=== PATIENT | male | born 1995 | race Two or more races ===

== ENCOUNTER 2023-09-28 14:36 | Emergency (ER) | payer OTHER ==
[~2023-09-28] VITALS: Ht 185.4 cm; Wt 61.2 kg
[2023-09-28] MEDS ORDERED: NEURONTIN400 MG (14:50)
[2023-09-28] MEDS ORDERED: OXYCODONE HCL5 MG (14:50)
[2023-09-28] MEDS ORDERED: VITAMIN D350 MC3 (14:51)
[2023-09-28] MEDS ORDERED: STIMULANT LAXA1 EACH (14:52)
[2023-09-28] MEDS ORDERED: HYDROXYZINE HCL50 MG (14:52)
[2023-09-28] MEDS ORDERED: METHOCARBAMOL750 MG (14:52)
[2023-09-28] MEDS ORDERED: VENTOLIN HFA18 GM (14:53)
[2023-09-28] MEDS ORDERED: AMITRIPTYLINE H25 MG (14:53)
--- OUTSIDE RECORDS SUMMARY | 2023-09-28 16:11 | XMS ---
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 E.D. VISIT COUNT (12 MO.) 1 [place] [id number] [facility] [place] TOTAL 3 NOTE: Visits indicate total known visits. ED/UCC VISIT TRACKING (12 MO.) 09/28/2023 14:38 [facility] [place] TYPE: Emergency COMPLAINT: - LT LEG PAIN 08/06/2023 13:43 [facility] TYPE: Emergency DIAGNOSES: - Acute posthemorrhagic anemia - Displaced comminuted fracture of shaft of left tibia, initial encounter for open fracture type IIIA, IIIB, or IIIC - Other disorder of circulatory system - Puncture wound without foreign body, left lower leg, initial encounter - Puncture wound without foreign body, left lower leg, initial encounter - Puncture wound without foreign body, right lower leg, initial encounter - Unspecified injury of popliteal artery, left leg, initial encounter - bi lateral gushot wound - Trauma 08/06/2023 11:12 [facility] [place] TYPE: Emergency INPATIENT VISIT TRACKING (12 MO.) 08/16/2023 13:37 [facility] [place] TYPE: Rehab DIAGNOSES: - Acquired absence of left leg above knee - Major depressive disorder, recurrent, unspecified - Phantom limb syndrome with pain - Puncture wound without foreign body, unspecified lower leg, initial encounter - Unspecified fracture of shaft of left tibia, initial encounter for open fracture type IIIA, IIIB, or IIIC - Unspecified fracture of shaft of right tibia, initial encounter for open fracture type IIIA, IIIB, or IIIC 08/06/2023 13:43 [facility] [place] TYPE: Orthopedic DIAGNOSES: - Acute posthemorrhagic anemia - Displaced comminuted fracture of shaft of left tibia, initial encounter for open fracture type IIIA, IIIB, or IIIC - Other disorder of circulatory system - Puncture wound without foreign body, left lower leg, initial encounter - Puncture wound without foreign body, left lower leg, initial encounter - Puncture wound without foreign body, right lower leg, initial encounter - Unspecified fracture of shaft of left tibia, initial encounter for open fracture type IIIA, IIIB, or IIIC - Unspecified fracture of shaft of right tibia, initial encounter for open fracture type IIIA, IIIB, or IIIC - Unspecified injury of popliteal artery, left leg, initial encounter [email or web address]
[2023-09-28] MEDS ORDERED: METHOCARBAMOL750 MG PO (16:51)
[2023-09-28] MEDS ORDERED: DIAZEPAM5 MG PO (18:35)
[2023-09-28 18:44] VITALS: BP 117/84
[2023-09-29] MEDS ORDERED: AMOX TR-K CLV1 EAC1 PO (21:30)
== END 2023-09-28 18:45 | disposition home or self-care (01) ==
LOC: ED 14:36
DX: M79.605 Pain in left leg (principal); Z79.899 Other long term (current) drug therapy; Z89.612 Acquired absence of left leg above knee
CPT/HCPCS: 96372; 99283; A9270; J1170

== ENCOUNTER 2023-09-29 17:49 | Emergency (ER) | payer OTHER ==
[~2023-09-29] VITALS: Ht 185.4 cm; Wt 61.2 kg
[~2023-09-29 17:49] MED LIST: AMITRIPTYLINE H25 MG; DIAZEPAM5 MG PO; HYDROXYZINE HCL50 MG; METHOCARBAMOL750 MG; METHOCARBAMOL750 MG PO; NEURONTIN400 MG; OXYCODONE HCL5 MG; STIMULANT LAXA1 EACH; VENTOLIN HFA18 GM; VITAMIN D350 MC3
--- OUTSIDE RECORDS SUMMARY | 2023-09-29 17:56 | XMS ---
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 E.Kerry VISIT COUNT (12 MO.) 2 [facility]ON Rashid 1 [place] [address] [place] TOTAL 4 NOTE: Visits indicate total known visits. ED/UCC VISIT TRACKING (12 MO.) 09/29/2023 17:49 [facility] [place] TYPE: Emergency COMPLAINT: - LT LEG PAIN 09/28/2023 14:38 [facility] [place] TYPE: Emergency COMPLAINT: - LT LEG PAIN 08/06/2023 13:43 [facility] [place] TYPE: Emergency DIAGNOSES: - Acute posthemorrhagic [...] lateral gushot wound - Tra[facility]23 [facility] INPATIENT VISIT TRACKING (12 MO.) 08/16/2023 13:37 [facility] [place] TYPE: Rehab DIAGNOSES: [...] type IIIA, IIIB, or IIIC 08/06/2023 13:43 [facility] [employer] [place] TYPE: Orthopedic DIAGNOSES: - Acute [...] of popliteal artery, left leg, initial encounter [email or web address]
[2023-09-29 19:05] LABS: EOSINOPHILS 9.8 % (0-6); HEMATOCRIT 38.1 % (35.0-50.0); HEMOGLOBIN 12.4 g/dL (12.0-18.0); MCH 27.6 (27-36); MCHC 32.6 g/dl (30-36); MCV 84.7 fl (81-99); MONOCYTES 11.3 % (0-12); NEUTROPHILS 40.9 % (39-80); PLATELET COUNT 205 K/uL (140-440); RDW 15.3 (10.5-15.0)
[2023-09-29 19:23] LABS: ALBUMIN 3.5 g/dL (3.4-5.0); ALBUMIN/GLOBULIN RATIO 1.09 (1.1-2.4); ANION GAP 12.3 (7-21); BILIRUBIN, TOTAL 0.2 ng/dL (0.2-1.0); BUN/CREATININE RATIO 22.35 (6.0-28.6); CALCIUM 8.9 mg/dL (8.5-10.1); CREATININE, SERUM 0.85 mg/dL (0.70-1.30); POTASSIUM 4.3 mmol/L (3.5-5.1); PROTEIN, TOTAL 6.7 g/dL (6.4-8.2)
[2023-09-29] MEDS ORDERED: AMOX TR-K CLV1 EAC1 PO (21:30)
[2023-09-29 21:43] VITALS: BP 119/87
[2023-09-30] MEDS ORDERED: DILAUDID2 MG PO (19:08)
== END 2023-09-29 21:40 | disposition home or self-care (01) ==
LOC: ED 17:49
PROVIDERS: Emergency Medicine
DX: T87.89 Other complications of amputation stump (principal); L76.34 Postprocedural seroma of skin and subcutaneous tissue following other procedure; I10 Essential (primary) hypertension; Y83.5 Amputation of limb(s) as the cause of abnormal reaction of the patient, or of later complication, without mention of misadventure at the time of the procedure
CPT/HCPCS: 36415; 73701; 80053; 85025; 86140; 99284-25; J3490; Q9967

== ENCOUNTER 2023-09-30 14:05 | Emergency (ER) | payer OTHER ==
[~2023-09-30] VITALS: Ht 185.4 cm; Wt 61.2 kg
--- OUTSIDE RECORDS SUMMARY | ~2023-09-30 | XMS | Continuity of Care Document ---
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 | | | | | 100 | | System - | | | | | LEUKOCYTES | | [place] | | | | | IN BLOOD BY | | | | | | | AUTOMATED | | | | | | | COUNT | | | | | | + + + +--------+ + + + + | Result panel 5 | + + + + + + + + + | ALCOHOL | 2023-08-06 | [facility] | < | g/dl | (missing) | | (G/DL) IN | 13:54 | Health | | | | | SER/PLAS | | System - | | | | | | | [place] | | | | + + + + + + + | WBC | 2023-08-06 | [facility] | 1 | /hpf | (missing) | | (LEUKOCYTE) | 13:54 | Health | | | | | (#/HPF) IN | | System - | | | | | URINE | | [place] | | | | | SEDIMENT | | | | | | + + + + + + + | RBC (#/HPF) | 2023-08-06 | [facility] | 1 | /hpf | (missing) | | IN URINE | 13:54 | Health | | | | | SEDIMENT | | System - | | | | | | | [place] | | | | + + + + + + + | SPECIFIC | 2023-08-06 | [facility] | 1.009 | (missing) | (missing) | | GRAVITY OF | 13:54 | Health | | | | | URINE BY | | System - | | | | | AUTOMATED | | [place] | | | | | TEST STRIP | | | | | | + + + + + + + | PH OF URINE | 2023-08-06 | [facility] | 5.5 | (missing) | (missing) | | | 13:54 | Health | | | | | | | System - | | | | | | | [place] | | | | + + + + + + + | CLARITY OF | 2023-08-06 | [facility] | Clear | (missing) | (missing) | | URINE | 13:54 | Health | | | | | | | System - | | | | | | | [place] | | | | + + + + + + + | COLOR OF | 2023-08-06 | [facility] | Colorless | (missing) | Urine | | URINE | 13:54 | Health | | | culture not | | | | System - | | | indicated. | | | | [place] | | | | + + + + + + + | | 2023-08-06 | [facility] | Negative | (missing) | (missing) | | BARBITURATES | 13:54 | Health | | | | | PRESENCE IN | | System - | | | | | URINE BY | | [place] | | | | | SCREEN | | | | | | | METHOD | | | | | | + + + + + + + | BILIRUBIN, | 2023-08-06 | [facility] | Negative | (missing) | (missing) | | TOTAL | 13:54 | Health | | | | | PRESENCE IN | | System - | | | | | URINE | | [place] | | | | + + + + + + + | COCAINE | 2023-08-06 | [facility] | Negative | (missing) | (missing) | | (PRESENCE) | 13:54 | Health | | | | | IN URINE BY | | System - | | | | | SCREEN | | [place] | | | | | METHOD | | | | | | + + + + + + + | GLUCOSE IN | 2023-08-06 | [facility] | Negative | (missing) | (missing) | | URINE | 13:54 | Health | | | | | | | System - | | | | | | | [place] | | | | + + + + + + + | HEMOGLOBIN | 2023-08-06 | [facility] | Negative | (missing) | (missing) | | PRESENCE IN | 13:54 | Health | | | | | URINE | | System - | | | | | | | [place] | | | | + + + + + + + | KETONES IN | 2023-08-06 | [facility] | Negative | (missing) | (missing) | | URINE | 13:54 | Health | | | | | | | System - | | | | | | | [place] | | | | + + + + + + + | LEUKOCYTE | 2023-08-06 | [facility] | Negative | (missing) | (missing) | | ESTERASE | 13:54 | Health | | | | | PRESENCE IN | | System - | | | | | URINE BY | | [place] | | | | | TEST STRIP | | | | | | + + + + + + + | METHADONE | 2023-08-06 | [facility] | Negative | (missing) | (missing) | | (PRESENCE) | 13:54 | Health | | | | | IN URINE BY | | System - | | | | | SCREEN | | [place] | | | | | METHOD | | | | | | + + + + + + + | | 2023-08-06 | [facility] | Negative | (missing) | (missing) | | METHAMPHETAM | 13:54 | Health | | | | | INE | | System - | | | | | (PRESENCE) | | [place] | | | | | IN URINE BY | | | | | | | SCREEN | | | | | | | METHOD | | | | | | + + + + + + + | NITRITE | 2023-08-06 | [facility] | Negative | (missing) | (missing) | | PRESENCE IN | 13:54 | Health | | | | | URINE | | System - | | | | | | | [place] | | | | + + + + + + + | OXYCODONE | 2023-08-06 | [facility] | Negative | (missing) | (missing) | | (PRESENCE) | 13:54 | Health | | | | | IN URINE BY | | System - | | | | | SCREEN | | [place] | | | | | METHOD | | | | | | + + + + + + + | | 2023-08-06 | [facility] | Negative | (missing) | (missing) | | PHENCYCLIDIN | 13:54 | Health | | | | | E (PRESENCE) | | System - | | | | | IN URINE BY | | [place] | | | | | SCREEN | | | | | | | METHOD | | | | | | + + + + + + + | PROTEIN IN | 2023-08-06 | [facility] | Negative | (missing) | (missing) | | URINE BY | 13:54 | Health | | | | | TEST STRIP | | System - | | | | | | | [place] | | | | + + + + + + + | THC | 2023-08-06 | [facility] | Negative | (missing) | (missing) | | (CANNABINOID | 13:54 | Health | | | | | ) IN URINE | | System - | | | | | BY SCREEN | | [place] | | | | | METHOD | | | | | | + + + + + + + | TRICYCLIC | 2023-08-06 | [facility] | Negative | (missing) | (missing) | | ANTIDEPRESSA | 13:54 | Health | | | | | NTS | | System - | | | | | (PRESENCE) | | [place] | | | | | IN URINE | | | | | | + + + + + + + | AMPHETAMINE | 2023-08-06 | [facility] | Negative | (missing) | [facility] URINE | | (PRESENCE) | 13:54 | Health | | | DRUG SCREEN | | IN URINE BY | | System - | | | CUT OFF | | SCREEN | | [place] | | | VALUES: AMP | | METHOD | | | | | Amphetamines | | | | | | | 500 ng/mL | | | | | | | MAMP | | | | | | | Methamphetam | | | | | | | ine 500 | | | | | | | ng/mL BAR | | | | | | | Barbiturates | | | | | | | 200 ng/mL | | | | | | | BZO | | | | | | | Benzodiazepi | | | | | | | karely 150 | | | | | | | ng/mL ED | | | | | | | Cocaine 150 | | | | | | | ng/mL MTD | | | | | | | Methadone | | | | | | | 200 ng/mL | | | | | | | OPI Opiates | | | | | | | 100 ng/mL | | | | | | | OXY | | | | | | | Oxycodone | | | | | | | 100 ng/mL | | | | | | | PCP | | | | | | | Phencyclidin | | | | | | | e 25 ng/mL | | | | | | | THC THC 50 | | | | | | | ng/mL TCA | | | | | | | Tricyclic | | | | | | | Antidepressa | | | | | | | nts 300 | | | | | | | ng/mL | + + + + + + + | BACTERIA | 2023-08-06 | [facility] | No bacteria | /hpf | (missing) | | (#/HPF) IN | 13:54 | Health | seen | | | | URINE | | System - | | | | | | | [place] | | | | + + + + + + + | | 2023-08-06 | [facility] | Normal | mg/dl | (missing) | | UROBILINOGEN | 13:54 | Health | | | | | (MG/DL) IN | | System - | | | | | URINE BY | | [place] | | | | | TEST STRIP | | | | | | + + + + + + + | | 2023-08-06 | [facility] | Presumptive | (missing) | (missing) | | BENZODIAZEPI | 13:54 | Health | Positive | | | | KARELY | | System - | | | | | (PRESENCE) | | [place] | | | | | IN URINE BY | | | | | | | SCREEN | | | | | | | METHOD | | | | | | + + + + + + + | OPIATES | 2023-08-06 | [facility] | Presumptive | (missing) | (missing) | | (PRESENCE) | 13:54 | Health | Positive | | | | IN URINE BY | | System - | | | | | SCREEN | | [place] | | | | | METHOD | | | | | | + + + + + + + | MUCUS | 2023-08-06 | [facility] | Trace | (missing) | (missing) | | (#/HPF) IN | 13:54 | Health | | | | | URINE | | System - | | | | | SEDIMENT | | [place] | | | | + + + + + + + + + | Result panel 6 | + + + + + +-------+-------+ + | CREATINE | 2023-08-06 | [facility] | 488 | u/l | (missing) | | KINASE (CK), | 13:55 | Health | | | | | TOTAL (U/L) | | System - | | | | | IN SER/PLAS | | [place] | | | | | | | | | | | + + + +-------+-------+ + + + | Result panel 7 | + + + + + + + + + | POCT FIO2 | 2023-08-06 | [facility] | (missing) | (missing) | (missing) | | | 14:00 | Health | | | | | | | System - | | | | | | | [place] | | | | + + + + + + + | POCT LPM | 2023-08-06 | [facility] | (missing) | (missing) | (missing) | | FLOW | 14:00 | Health | | | | | | | System - | | | | | | | [place] | | | | + + + + + + + | POCT PCO2 | 2023-08-06 | [facility] | (missing) | (missing) | (missing) | | (CALC) TEMP | 14:00 | Health | | | | | CORRECTED | | System - | | | | | BLOOD VENOUS | | [place] | | | | | | | | | | | + + + + + + + | POCT PH, | 2023-08-06 | [facility] | (missing) | (missing) | (missing) | | (CALC) TEMP | 14:00 | Health | | | | | CORRECTED | | System - | | | | | BLOOD VENOUS | | [place] | | | | | | | | | | | + + + + + + + | POCT PO2 | 2023-08-06 | [facility] | (missing) | (missing) | (missing) | | (CALC) TEMP | 14:00 | Health | | | | | CORRECTED | | System - | | | | | BLOOD VENOUS | | [place] | | | | | | | | | | | + + + + + + + | POCT | 2023-08-06 | [facility] | (missing) | (missing) | (missing) | | TEMPERATURE | 14:00 | Health | | | | | | | System - | | | | | | | [place] | | | | + + + + + + + | POCT BASE | 2023-08-06 | [facility] | -4.0 | mmol/l | (missing) | | EXCESS CALC | 14:00 | Health | | | | | BLOOD VENOUS | | System - | | | | | | | [place] | | | | + + + + + + + | POCT | 2023-08-06 | [facility] | 0.7 | mg/dl | (missing) | | CREATININE | 14:00 | Health | | | | | BLOOD | | System - | | | | | | | [place] | | | | + + + + + + + | POCT HCO3 | 2023-08-06 | [facility] | 21 | mmol/l | (missing) | | CALC BLOOD | 14:00 | Health | | | | | VENOUS | | System - | | | | | | | [place] | | | | + + + + + + + | POCT TCO2 | 2023-08-06 | [facility] | 22 | mmol/l | (missing) | | CALC BLOOD | 14:00 | Health | | | | | VENOUS | | System - | | | | | | | [place] | | | | + + + + + + + | POCT PCO2 | 2023-08-06 | [facility] | 33 | mm hg | (missing) | | (37C) BLOOD | 14:00 | Health | | | | | VENOUS | | System - | | | | | | | [place] | | | | + + + + + + + | POCT | 2023-08-06 | [facility] | 34.0 | % | (missing) | | HEMATOCRIT | 14:00 | Health | | | | | | | System - | | | | | | | [place] | | | | + + + + + + + | POCT PO2 | 2023-08-06 | [facility] | 53 | mm hg | (missing) | | (37C) BLOOD | 14:00 | Health | | | | | VENOUS | | System - | | | | | | | [place] | | | | + + + + + + + | POCT PH | 2023-08-06 | [facility] | 7.41 | ph | (missing) | | (37C) BLOOD | 14:00 | Health | | | | | VENOUS | | System - | | | | | | | [place] | | | | + + + + + + + | POCT O2 | 2023-08-06 | [facility] | 87 | % | (missing) | | SATURATION | 14:00 | Health | | | | | CALC BLOOD | | System - | | | | | VENOUS | | [place] | | | | + + + + + + + + + | Result panel 8 | + + + + + +--------+ + + | INR | 2023-08-06 | [facility] | 1.3 | (missing) | (missing) | | | 14:03 | Health | | | | | | | System - | | | | | | | [place] | | | | + + + +--------+ + + | D-DIMER, | 2023-08-06 | [facility] | 1.79 | mcg/ml feu | The | | QUANTITATIVE | 14:03 | Health | | | 'reference | | (MCG/ML) | | System - | | | range' for | | STAGO | | [place] | | | the D-dimer | | | | | | | assay is an | | | | | | | interpretati | | | | | | | ve range for | | | | | | | exclusion | | | | | | | of DVT/PE in | | | | | | | low and | | | | | | | moderate | | | | | | | pre-test | | | | | | | probability | | | | | | | patients; | | | | | | | this range | | | | | | | has been | | | | | | | aged-adjuste | | | | | | | d for | | | | | | | patients | | | | | | | older than | | | | | | | 50. ?If the | | | | | | | D-dimer has | | | | | | | been ordered | | | | | | | for other | | | | | | | purposes the | | | | | | | true | | | | | | | reference | | | | | | | range for | | | | | | | outpatient | | | | | | | adults is | | | | | | | 0.12-0.53 | | | | | | | mcg/mL FEU. | + + + +--------+ + + | PT | 2023-08-06 | [facility] | 15.9 | seconds | INR is valid | | (PROTHROMBIN | 14:03 | Health | | | for | | TIME) | | System - | | | patients on | | | | [place] | | | coumadin | | | | | | | therapy, or | | | | | | | may be | | | | | | | useful in | | | | | | | the context | | | | | | | of massive | | | | | | | transfusion | | | | | | | protocol. | | | | | | | Recommended | | | | | | | INR | | | | | | | Therapeutic | | | | | | | Range for | | | | | | | Coumadin | | | | | | | Therapy: | | | | | | | Prophylaxis | | | | | | | and | | | | | | | treatment of | | | | | | | venous | | | | | | | thrombosis | | | | | | | or pulmonary | | | | | | | embolism | | | | | | | 2.0 - 3.0 | | | | | | | Tissue heart | | | | | | | valves ' ' | | | | | | | Acute NE ' ' | | | | | | | Valvular | | | | | | | heart | | | | | | | disease ' ' | | | | | | | Atrial | | | | | | | fibrillation | | | | | | | ' ' | | | | | | | Mechanical | | | | | | | prosthetic | | | | | | | valves (high | | | | | | | risk) 2.5 - | | | | | | | 3.5 | + + + +--------+ + + | FIBRINOGEN | 2023-08-06 | [facility] | 214 | mg/dl | (missing) | | (MG/DL) | 14:03 | Health | | | | | | | System - | | | | | | | [place] | | | | + + + +--------+ + + | APTT | 2023-08-06 | [facility] | 23.8 | seconds | | | (ACTIVATED | 14:03 | Health | | | | | PARTIAL | | System - | | | | | THROMBOPLAST | | [place] | | | | | IN TIME) | | | | | | + + + +--------+ + + Social History + + + + | date | description | facility | + + + + | 2023-09-03 00:00 | Unknown if ever smoked | [facility] | | | | | + + + + Vital Signs No information."
[~2023-09-30 14:05] MED LIST changes: +AMOX TR-K CLV1 EAC1 PO
--- OUTSIDE RECORDS SUMMARY | 2023-09-30 14:13 | XMS ---
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 Current PHONE: Unknown [facility] PHONE: Unknown INDERJIT GIPSON Physician Current PHONE: [phone] Renetta has no Care Guidelines for this patient. E.Kerry VISIT COUNT (12 MO.) 3 BRANDON Rashid 1 [place] [address] [place] TOTAL 5 NOTE: Visits indicate total known visits. ED/UCC VISIT TRACKING (12 MO.) 09/30/2023 14:06 [facility] [place] TYPE: Emergency COMPLAINT: - L LEG PAIN 09/29/2023 17:49 [facility] [place] TYPE: Emergency COMPLAINT: - LT LEG PAIN 09/28/2023 14:38 [facility] [place] TYPE: Emergency COMPLAINT: - LT LEG PAIN DIAGNOSES: - Acquired absence of left leg above knee - Other fpc (current) drug therapy - Pain in left leg 08/06/2023 13:43 [place] [facility] [place] TYPE: Emergency DIAGNOSES: - Acute posthemorrhagic [...] lateral gushot wound - Trauma 08/06/2023 11:12 [facility] [place] TYPE: Emergency INPATIENT VISIT TRACKING (12 MO.) 08/16/2023 13:[address] [facility] [place] TYPE: Rehab DIAGNOSES: [...] type IIIA, IIIB, or IIIC 08/06/2023 13:[address] [facility] [place] TYPE: Orthopedic DIAGNOSES: [...] of popliteal artery, left leg, initial encounter [email or web address]
[2023-09-30 16:23] LABS: BASOPHILS 0.8 % (0-2); EOSINOPHILS 10.1 % (0-6); HEMATOCRIT 39.1 % (35.0-50.0); HEMOGLOBIN 12.7 g/dL (12.0-18.0); LYMPHOCYTES 27.2 % (24-44); MCH 27.5 (27-36); MCHC 32.6 g/dl (30-36); MCV 84.5 fl (81-99); MONOCYTES 10.6 % (0-12); NEUTROPHILS 51.3 % (39-80); PLATELET COUNT 195 K/uL (140-440); RBC 4.63 M/ul (4.3-5.7); RDW 15.5 (10.5-15.0)
[2023-09-30 18:25] LABS: APPEARANCE, BODY FLUID BLOODY; RBC, BODY FLUID 3860000; WBC, BODY FLUID 4500
[2023-09-30 18:26] LABS: SOURCE, BODY FLUID LEFT FOOT
[2023-09-30 18:27] LABS: MONONUCLEAR CELLS, BODY FLUID 26; PMNS, BODY FLUID 74
[2023-09-30] MEDS ORDERED: DILAUDID2 MG PO (19:08)
[2023-09-30 19:17] VITALS: BP 119/80
== END 2023-09-30 19:19 | disposition home or self-care (01) ==
LOC: ED 14:05
PROVIDERS: Emergency Medicine
DX: T87.89 Other complications of amputation stump (principal); M79.652 Pain in left thigh; Z79.899 Other long term (current) drug therapy; Z79.51 Long term (current) use of inhaled steroids
CPT/HCPCS: 36415; 76881; 85025; 86140; 87070; 87205; 89051; 99284-25; J1170

== ENCOUNTER 2024-10-08 09:18 | Emergency (ER) | payer OTHER ==
[~2024-10-08] VITALS: Ht 185.4 cm; Wt 89.8 kg
[~2024-10-08 09:18] MED LIST changes: +BELBUCA600 MCG BC; +DILAUDID2 MG PO; +GABAPENTIN400 MG PO; +LEVOFLOXACIN750 MG PO; +METHOCARBAMOL500 MG PO; +ONDANSETRON ODT4 MG PO; +ONDANSETRON ODT8 MG PO; +VENTOLIN HFA18 GM INH
[2024-10-08 09:47] LABS: BASOPHILS 0.7 % (0-2); EOSINOPHILS 5.7 % (0-6); LYMPHOCYTES 43.1 % (24-44); MCH 29.8 (27-36); MCV 87.6 fl (81-99); MONOCYTES 7.9 % (0-12); NEUTROPHILS 42.6 % (39-80); PLATELET COUNT 180 K/uL (140-440); RBC 5.02 M/ul (4.3-5.7); RDW 13.7 (10.5-15.0)
[2024-10-08 10:03] LABS: ALBUMIN 3.6 g/dL (3.4-5.0); ALBUMIN/GLOBULIN RATIO 1.09 (1.1-2.4); ALKALINE PHOSPHATASE 148 U/L (46-116); ALT (SGPT) 26 U/L (14-59); ANION GAP 11.8 (7-21); AST (SGOT) 17 U/L (15-37); BILIRUBIN, TOTAL 0.4 ng/dL (0.2-1.0); BUN/CREATININE RATIO 20.79 (6.0-28.6); CALCIUM 8.9 mg/dL (8.5-10.1); CARBON DIOXIDE 29 mmol/L (21-32); CHLORIDE 101 mmol/L (98-107); CREATININE, SERUM 1.01 mg/dL (0.70-1.30); GLOMERULAR FILTRATION RATE,EST 103 mL/min (>60); POTASSIUM 3.8 mmol/L (3.5-5.1); PROTEIN, TOTAL 6.9 g/dL (6.4-8.2); UREA NITROGEN 21 mg/dL (7-18)
[2024-10-08 11:49] VITALS: BP 120/90
--- NOTE | 2024-10-08 19:33 | EKG ---
[facility] [address] [place] [address] Signed Normal sinus rhythm Right axis deviation Abnormal ECG No previous ECGs available Confirmed by Billy Shepherd MD ([id number]) on 10/08/2024 7:33:13 PM Electronically Signed By: BILLY SHEPHERD MD 10/08/241932 PATIENT NAME: CHERRY TANG Electrocardiogram DATE OF : [birth year] PHYSICIAN: BILLY SHEPHERD MD REPORT #: [id number] REPORT IS CONFIDENTIAL AND NOT TO BE RELEASED WITHOUT AUTHORIZATION
== END 2024-10-08 11:49 | disposition home or self-care (01) ==
LOC: ED 09:18
PROVIDERS: Emergency Medicine
DX: R07.89 Other chest pain (principal); Z79.899 Other long term (current) drug therapy
CPT/HCPCS: 36415; 80053; 84484; 85025; 99285

== ENCOUNTER 2025-02-21 13:36 | Emergency (ER) | payer OTHER ==
[~2025-02-21] VITALS: Ht 185.4 cm; Wt 89.6 kg
[2025-02-21] MEDS ORDERED: ondansetron HCL 4 MG/2 ML VIAL IV ONE (14:00)
[2025-02-21] MEDS ORDERED: SODIUM CHLORIDE 0.9% 1,000 ML IV PRN (14:15)
[2025-02-21 14:25] LABS: BASOPHILS 0.7 % (0.2-1.2); EOSINOPHILS 0.7 % (0.8-7.0); HEMATOCRIT 48.9 % (40.1-51.0); HEMOGLOBIN 16.8 g/dL (13.7-17.5); LYMPHOCYTES 18.8 % (21.8-53.1); MCH 28.8 PG (25.7-32.2); MCHC 34.4 g/dL (32.3-36.5); MCV 83.7 fL (79.0-92.2); MONOCYTES 5.2 % (5.3-12.2); NEUTROPHILS 74.3 % (34.0-67.9); PLATELET COUNT 217 K/uL (163-337); RBC 5.84 M/uL (4.63-6.08)
[2025-02-21 14:43] LABS: ALBUMIN 4.6 g/dL (3.4-5.0); ALBUMIN/GLOBULIN RATIO 1.12 (1.1-2.4); BILIRUBIN, TOTAL 0.7 mg/dL (0.2-1.0); BUN/CREATININE RATIO 11.01 (6.0-28.6); CALCIUM 10.3 mg/dL (8.5-10.1); CREATININE, SERUM 1.18 mg/dL (0.70-1.30); PROTEIN, TOTAL 8.7 g/dL (6.4-8.2)
[2025-02-21 15:19] LABS: BILIRUBIN, URINE NEGATIVE (negative); BLOOD/HGB, URINE NEGATIVE (Negative); KETONE, URINE TRACE (Negative); LEUK ESTERASE, URINE NEGATIVE (negative); NITRITE, URINE NEGATIVE (negative)
[2025-02-21] MEDS ORDERED: ONDANSETRON ODT8 MG PO (15:25)
[2025-02-21 15:41] VITALS: BP 134/81
== END 2025-02-21 15:40 | disposition home or self-care (01) ==
LOC: ED 13:36
PROVIDERS: Emergency Medicine
DX: A08.4 Viral intestinal infection, unspecified (principal); Z79.899 Other long term (current) drug therapy
CPT/HCPCS: 36415; 80053; 81003; 83690; 83735; 85025; 96374; 99284-25; J2405; J7030